=== PATIENT | male | born 1970 | race Caucasian/White ===

== ENCOUNTER 2017-02-03 07:18 | Emergency (ER) | payer OTHER ==
[2017-02-03 07:35] VITALS: BP 124/78
--- NOTE | 2017-02-03 08:27 | UC ---
Respiratory Complaint HPI - HPI Summary HPI Summary: 1) JONES, ST, cough, malaise starting 2 days ago when pt returned from business trip to [place]. Yesterday couldn't leave bed, was concerned about that, though he is feeling a bit better today. Denies fever or trouble breathing. No known exposure to infectious disease. 2) Small area of soreness on L elbow, somewhat worse with outside laborer and hand/wrist motion. Has been there for about 2 months, pt is wondering if it is related to his hockey playing. Hx of golfer's elbow from holding stick. - History of Current Complaint Chief Complaint: UCGeneralIllness Stated Complaint: ST,COUGH & ELBOW PAIN Time Seen by Provider: 02/03/17 08:07 Hx Obtained From: Patient Onset/Duration: Gradual Onset, Lasting Days Timing: Constant Severity Initially: Mild Severity Currently: Moderate Character: Cough: Nonproductive Aggravating Factors: Nothing Alleviating Factors: Nothing Associated Signs And Symptoms: Positive: Nasal Congestion. Negative: Fever, Chills, Wheezing - Allergies/Home Medications Allergies/Adverse Reactions: Allergies Allergy/AdvReac Type Severity Reaction Status Date / Time No Known Allergies Allergy Verified 02/03/17 07:29 PMH/Surg Hx/FS Hx/Imm Hx Endocrine History Of: Denies: Diabetes, Thyroid Disease, Hyperthyroidism, Hypothyroidism Cardiovascular History Of: Denies: Cardiac Disorders, Hypertension, Pacemaker/ICD Respiratory History Of: Reports: Asthma - A CHILD ONLY Denies: COPD GI/ History Of: Denies: Ulcer, Renal Disease Neurological History Of: Denies: TIA, Seizures Psychological History Of: Denies: Anxiety, Depression - Surgical History Surgical History: Yes Surgery Procedure, Year, and Place: Left ACL replacement (1989)- [facility] [place] [facility]. foreign object removal from stomach (1994)- [facility] ANEST[facility]ESIA. [facility] [place] [facility] [place]. [place] [facility] [place]. Hernia repair 2014 - Family History Known Family History: Negative: Blood Disorder Family History: NON CONTRIBUTORY - Social History Occupation: Employed Full-time Alcohol Use: Daily Alcohol Amount: 1 PER DAY Substance Use Type: None Smoking Status (MU): Never Smoked Tobacco Household Exposure Type: Cigarettes - Immunization History Most Recent Influenza Vaccination: 09/2016 Most Recent Tetanus Shot: up to date Review of Systems Constitutional: Negative Skin: Negative Eyes: Negative ENT: Sore Throat, Nasal Discharge Respiratory: Cough Cardiovascular: Negative Gastrointestinal: Negative Genitourinary: Negative Motor: Negative Neurovascular: Negative Musculoskeletal: Other: - L elbow pain Neurological: Headache Psychological: Negative All Other Systems Reviewed And Are Negative: Yes Physical Exam Triage Information Reviewed: Yes Appearance: Well-Appearing, No Pain Distress, Well-Nourished Vital Signs: Initial Vital Signs Temp 98.7 F 02/03/17 07:30 Pulse 61 02/03/17 07:30 Resp 18 02/03/17 07:30 BP 124/78 02/03/17 07:30 Pulse Ox 99 02/03/17 07:30 Vital Signs Reviewed: Yes Eye Exam: Normal Eyes: Positive: Conjunctiva Clear ENT: Positive: Hearing grossly normal, Pharynx normal, Nasal congestion, TMs normal Dental Exam: Normal Neck exam: Normal Neck: Positive: Supple, Nontender, No Lymphadenopathy Respiratory Exam: Normal, Other - no cough noted Respiratory: Positive: Chest non-tender, Lungs clear, Normal breath sounds, No respiratory distress, No accessory muscle use Cardiovascular Exam: Normal Cardiovascular: Positive: RRR, No Murmur Musculoskeletal Exam: Other - sore area superior and medial to L lateral epicondyle, worse with L outside laborer and L wrist movement Musculoskeletal: Positive: Strength Intact, ROM Intact Neurological Exam: Normal Neurological: Positive: Alert, Muscle Tone Normal Psychological Exam: Normal Skin Exam: Normal UC Diagnostic Evaluation - Laboratory O2 Sat by Pulse Oximetry: 99 Respiratory Course/Dx - Differential Dx/Diagnosis Provider Diagnoses: URI, likely viral. L elbow tendinitis Discharge - Discharge Plan Condition: Stable Disposition: HOME Patient Education Materials: Upper Respiratory Infection (ED), Tendinitis (ED) Referrals: Festus Herring MD [Primary Care Provider] - If Needed Additional Instructions: Call or return if you develop increasing fever, shortness of breath, chest pain , bloody sputum, or otherwise worsen. If you have not improved at all after several days, contact your primary care physician or return here. I recommend you take 2 pills of [id number] naproxen twice daily for at least a week and refrain from motions/activities that make your elbow pain worse. If pain persists or recurs after that, please see Dr. Herring for follow- up.
== END 2017-02-03 08:26 | disposition home or self-care (01) ==
LOC: UCEAST 07:18
DX: J06.9 Acute upper respiratory infection, unspecified (principal); M77.9 Enthesopathy, unspecified; M25.522 Pain in left elbow; Z77.22 Contact with and (suspected) exposure to environmental tobacco smoke (acute) (chronic)
CPT/HCPCS: 99212; G0463

== ENCOUNTER 2019-11-26 08:00 | Emergency (ER) | payer OTHER ==
--- OUTSIDE RECORDS SUMMARY | 2019-11-26 08:05 | XMS REPORT | Continuity of Care Document ---
:1970 External Reference #:[id number] Author Name Efren Guillory MD, FACS (transmitted by agent of provider Joseph Luna) Address [address] [place] [address] [address] [place] [address] Problems Description No Information Available Social History Type Date Description Comments Sex Unknown ETOH Use Drinks 6 Alcoholic Beverages Per Week Tobacco Use Start: Unknown Patient has never smoked Smoking Status Reviewed: 10/22/19 Patient has never smoked Exercise Type/Frequency Exercises regularly Allergies, Adverse Reactions, Alerts Description No Known Drug Allergies Medications Active Medications SIG Qnty Indications Ordering Provider Date Advil Unknown Immunizations Description No Information Available Vital Signs Date Vital Result Comment 10/22/2019 9:09am Height 68 inches 5'8" Weight 173.00 lb Heart Rate 64 /min BP Systolic 115 mmHg BP Diastolic 66 mmHg Respiratory Rate 16 /min Body Temperature 97.8 F BMI (Body Mass Index) 26.3 kg/m2 06/21/2019 8:34am Height 68 inches 5'8" Weight 173.00 lb Heart Rate 52 /min BP Systolic 108 mmHg BP Diastolic 62 mmHg Pain Level 5 BMI (Body Mass Index) 26.3 kg/m2 Results Description No Information Available Procedures Description No Information Available Medical Devices Description No Information Available Encounters Type Date Location Provider Dx Diagnosis Office Visit 06/21/2019 [facility] Yamilka Garza 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 06/21/2019 M77.02 Medial epicondylitis, left elbow Yamilka Garza M.D. Plan of Treatment 10/22/2019 - Efren Guillory MD, FACSR10.31 Right lower quadrant painComments: Right groin pain. Does not appear to be due to recurrent hernia.Recommendations :Rest and ibuprofen as needed. Consider evaluation by Sports Medicine/ Orthopedic surgeon if symptoms persist. Functional Status Description No Information Available Mental Status Description No Information Available Referrals Description No Information Available
[2019-11-26 08:20] VITALS: BP 108/71
--- NOTE | 2019-11-26 08:25 | UC ---
General HPI - HPI Summary HPI Summary: Cough x 1 month. Better, but then worse again yesterday. No fever / chills. Cough never completely went away. No rash. No sore throat except cough. + burning with cough No sob perse No GI issues. - History of Current Complaint Chief Complaint: UCRespiratory Stated Complaint: COUGH Hx Obtained From: Patient Pain Intensity: 0 - Allergy/Home Medications Allergies/Adverse Reactions: Allergies Allergy/AdvReac Type Severity Reaction Status Date / Time No Known Allergies Allergy Verified 11/26/19 08:20 Home Medications: Home Medications Eucalyptus/Menthol [Cough Drops] 1 tab PO ONCE PRN 11/26/19 [History Confirmed 11/26/19] PMH/Surg Hx/FS Hx/Imm Hx Previously Healthy: Yes - childhood asthma well gone - Surgical History Surgical History: Yes Surgery Procedure, Year, and Place: Left ACL replacement (1989)- [facility]- [facility]. foreign object removal from stomach (1994)- [facility]. [facility] [place] [facility] [place]. [place] [facility] [place]. Hernia repair 2015 - Family History Known Family History: Negative: Blood Disorder Family History: NON CONTRIBUTORY - Social History Alcohol Use: Daily Alcohol Amount: 1 PER DAY Substance Use Type: None Smoking Status (MU): Never Smoked Tobacco Household Exposure Type: Cigarettes - Immunization History Most Recent Influenza Vaccination: 09/2016 Most Recent Tetanus Shot: up to date Review of Systems All Other Systems Reviewed And Are Negative: Yes Constitutional: Positive: Negative Skin: Positive: Negative Eyes: Positive: Other - see hpi ENT: Positive: Other - see hpi Respiratory: Positive: Cough Cardiovascular: Positive: Negative Gastrointestinal: Positive: Negative Genitourinary: Positive: Negative Motor: Positive: Negative Neurovascular: Positive: Negative Musculoskeletal: Positive: Negative Neurological: Positive: Negative Psychological: Positive: Negative Is Patient Immunocompromised?: No Physical Exam Triage Information Reviewed: Yes Appearance: Well-Appearing - but looks tired, Well-Nourished Vital Signs: Initial Vital Signs Temp 98.5 F 11/26/19 08:15 Pulse 83 11/26/19 08:15 Resp 18 11/26/19 08:15 BP 108/71 11/26/19 08:15 Pulse Ox 96 11/26/19 08:15 Vital Signs Reviewed: Yes Eye Exam: Normal ENT: Positive: Pharynx normal, Nasal congestion, TM dull Neck exam: Normal Neck: Positive: Nontender Respiratory Exam: Other - + rhonchorus cough with tight bs Respiratory: Positive: No respiratory distress, No accessory muscle use Cardiovascular Exam: Normal Cardiovascular: Positive: RRR, No Murmur, Pulses Normal, Brisk Capillary Refill Abdominal Exam: Normal Abdomen Description: Positive: Nontender Musculoskeletal Exam: Normal Neurological Exam: Normal - nonfocal Psychological Exam: Normal - nad Skin Exam: Normal Course/Dx - Course Course Of Treatment: REviewed coa / tx plan. Declines work note. Questions as posed answered to the best of my ability. - Diagnoses Provider Diagnosis: Bronchitis Discharge ED - Sign-Out/Discharge Documenting (check all that apply): Patient Departure All imaging exams completed and their final reports reviewed: No Studies - Discharge Plan Condition: Stable Disposition: HOME Patient Education Materials: Acute Bronchitis (ED) Referrals: Festus Herring MD [Primary Care Provider] - - Billing Disposition and Condition Condition: STABLE Disposition: Home
== END 2019-11-26 08:59 | disposition home or self-care (01) ==
LOC: UCEAST 08:00
DX: J40 Bronchitis, not specified as acute or chronic (principal); R09.81 Nasal congestion
CPT/HCPCS: 99212; G0463

== ENCOUNTER 2020-11-14 04:19 | Observation (INO) ==
[2020-11-14 05:26] LABS: ABS Basophils 0.1 10^3/ul (0-0.2); ABS Eosinophils 0.1 10^3/ul (0-0.6); ABS Lymphocytes 2.4 10^3/ul (1.0-4.8); ABS Monocytes 0.7 10^3/ul (0-0.8); ABS Neutrophils 6.7 10^3/ul (1.5-7.7); Eosinophil % 0.6 %; Hematocrit 42 % (42-52); Lymphocyte % 24.7 %; Mean Corpuscular HGB Conc 34 g/dL (31-36); Mean Corpuscular Hemoglobin 31 pg (27-31); Mean Corpuscular Volume 93 fL (80-94); Mean Platelet Volume 8.2 fL (7.4-10.4); Platelet Count 268 10^3/uL (150-450); Red Cell Distribution Width 13 % (10-15); White Blood Count 9.9 10^3/uL (3.5-10.8)
[2020-11-14] MEDS ORDERED: Ondansetron 4 mg VIAL 2 MG/ML 2 ml VIAL IV ONE (05:35)
[2020-11-14] MEDS ORDERED: Morphine 4 MG/ML VIAL (1 ml) IV ONE ×2 (05:35→07:39)
[2020-11-14 05:37] LABS: ALT 21 U/L (7-52); AST 20 U/L (13-39); Albumin 4.4 g/dL (3.2-5.2); Albumin/Globulin Ratio 1.6 (1-3); Alkaline Phosphatase 58 U/L (34-104); Anion Gap 12 mmol/L (2-11); BUN/Creatinine Ratio 14.7 (8-20); Blood Urea Nitrogen 15 mg/dL (6-24); C Reactive Protein < 1.00 mg/L (<8.01); CO2 Carbon Dioxide 26 mmol/L (22-32); Calcium 9.5 mg/dL (8.6-10.3); Chloride 100 mmol/L (101-111); EGFR African American 93.9 (>60); EGFR Non-African American 77.6 (>60); Globulin 2.8 g/dL (2-4); Glucose 189 mg/dL (70-100); Lipase 21 U/L (11.0-82.0); Sodium 138 mmol/L (135-145); Total Protein 7.2 g/dL (6.4-8.9)
[2020-11-14] MEDS ORDERED: NS 0.9% IV ONE (06:00)
[2020-11-14] MEDS ORDERED: Iohexol 300 (CONTRAST) 10 ML SDV IV ONE (06:06)
[2020-11-14] MEDS ORDERED: NS 0.9% 1000 ml BAG 1,000 ML IV ONE (07:39)
[2020-11-14] MEDS ORDERED: ceFAZolin 2 GM PREMIX 2 GM/50 ML BAG ONE (08:50)
[2020-11-14] MEDS ORDERED: Rocuronium 50 mg VIAL 10 mg/ml 5 ml VIAL (50 mg) ONE (08:57)
[2020-11-14] MEDS ORDERED: Midazolam 2 mg/2 ml VIAL 1 mg/ml 2 ml VIAL (2 mg) ONE (08:57)
[2020-11-14] MEDS ORDERED: fentaNYL 250 mcg/5 ml 50 MCG/ML 5 ml VIAL (250 MCG) ONE (08:57)
[2020-11-14] MEDS ORDERED: Propofol 10 MG/ML 20 ML BTL ONE (08:58)
[2020-11-14] MEDS ORDERED: Glycopyrrolate IV 0.2 MG/ML 1 ML VIAL ONE (08:59)
[2020-11-14] MEDS ORDERED: Bupivacaine 0.25% SDV 30 ML ONE (08:59)
[2020-11-14] MEDS ORDERED: Lidocaine 1% w EPI 1:100,000 MDV 20 ML VIAL ONE (09:03)
[2020-11-14 09:11] LABS: Urine Appearance Clear; Urine Bilirubin Negative (Negative); Urine Blood Negative (Negative); Urine Color Yellow; Urine Glucose Negative (Negative); Urine Ketones 1+ (Negative); Urine Nitrite Negative (Negative); Urine Protein Negative (Negative); Urine Urobilinogen Negative (Negative)
[2020-11-14] MEDS ORDERED: HYDROmorphone 1 MG/1 ML SYRINGE ONE (09:34)
[2020-11-14] MEDS ORDERED: fentaNYL 100 mcg/2 ml 50 MCG/ML VIAL IV PRN (09:38)
[2020-11-14] MEDS ORDERED: Ondansetron 4 mg VIAL 2 MG/ML 2 ml VIAL IV PRN (09:38)
[2020-11-14] MEDS ORDERED: HYDROmorphone 1 MG/1 ML SYRINGE IV PRN (09:38)
[2020-11-14] MEDS ORDERED: Naloxone 0.4 mg VIAL 0.4 mg/ml 1 ml VIAL IV PRN (09:38)
[2020-11-14] MEDS ORDERED: Acetaminophen IV 1 GM/100ML 100 ML ONE (09:47)
[2020-11-14] MEDS ORDERED: Ondansetron 4 mg VIAL 2 MG/ML 2 ml VIAL ONE (09:47)
[2020-11-14] MEDS ORDERED: HYDROcodone/ACETAMIN 5/325 mg TAB PO PRN (10:26)
[2020-11-14] MEDS ORDERED: Lactated Ringers 1000 ml BAG 1,000 ML IV SCH (11:00)
[2020-11-14 15:46] VITALS: BP 106/64
== END 2020-11-14 18:10 | disposition home or self-care (01) ==
LOC: ED 04:19 → INTOOBSV 11:20 → SSU 11:20
PROVIDERS: ADMIT Surgery; ATTEND Surgery